=== PATIENT | female | born 1980 | race Hispanic/Latino ===

== ENCOUNTER 2019-05-04 17:49 | Emergency (ER) | payer OTHER ==
[~2019-05-04] VITALS: Ht 165.1 cm; Wt 90.7 kg
--- OUTSIDE RECORDS SUMMARY | 2019-05-04 17:51 | XMS REPORT | Clinical Summary ---
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 Active ferrous sulfate 325 mg Take 1 tablet 90 tablet 3 (65 mg iron) by mouth 3 6 tabletIndications: Iron times daily. deficiency Active nicotine (NICODERM CQ) 21 Apply 1 Patch 28 Patch 0 mg/24 hr to skin as 6 patchIndications: Tobacco directed use daily. Active polyethylene glycol 3350 Take 1 Packet 14 Each 2 (GLYCOLAX) 17 gram oral by mouth 6 powder packetIndications: daily. Constipation, unspecified constipation type Active gabapentin (NEURONTIN) Take 1 30 capsule 1 100 mg capsule by 6 capsuleIndications: mouth 3 times Constipation, unspecified daily. 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 SOB (shortness of breath) 10/27/2013 Constipation 09/30/2013 Anxiety 09/25/2013 Physical deconditioning 09/25/2013 Low back pain 09/24/2013 Headache(784.0) 09/23/2013 Discitis 09/21/2013 Smoking 05/11/2012 Herniated lumbar intervertebral disc 01/02/2012 Chronic lower back pain 10/24/2011 Overview: Concerns about multiple prescribers and multiple pharmacies being used for controlled substances Please review DPS patient prescription report prior to next refill authorization and have patient sign pain contract Fatty liver 04/21/2009 Ingestion of substance Suicidal behavior Fever, unspecified Headache, chronic daily Left arm weakness Left leg weakness Encounters Care Team Description Date Type Specialty Estrada Vera MD Left sided chest pain (Primary Dx); Acute nonintractable headache, unspecified headache type; Anxiety 02/05/2019 Emergency Emergency Medicine 02/05/2019 Travel after 05/03/2018 Immunizations Name Administration Dates Next Due Influenza Vaccine 09/02/2013, 07/27/2012 Ketorolac 30mg/1ml Inj 12/26/2013, 12/12/2013, 09/16/2013, 07/27/2012 (x ) PPV 23 Pneumococcal 12/06/2012 Polysaccaride Tdap Tetanus, diphtheria, 11/01/2012 acellular pertussis Vaccine Toradol 60mg/2ml Syringe 07/05/2013 Family History Medical History Relation Name Comments Asthma Mother Diabetes Mother Heart Mother Relation Name Status Comments Brother Alive Brother Alive Father Alive Mother Sister Alive Sister Social History Date Tobacco Use Types Packs/Day Years Used Former Smoker Cigarettes, 0.5 10 Cigars Smokeless Tobacco: Former Quit: 06/21/2013 User Tobacco Cessation: Counseling Given: No Comments: current smoker Drinks/Week oz/Week Comments Alcohol Use No Sex Assigned at Date Recorded Not on file Industry Job Start Date Occupation Not on file Not on file Not on file Travel End Travel History Travel Start No recent travel history available. Last Filed Vital Signs Reading Time Taken Comments Vital Sign 122/60 02/05/2019 8:16 PM CDT Blood Pressure 63 02/05/2019 8:16 PM CDT Pulse 36.6 C (97.9 F) 02/05/2019 8:16 PM CDT Temperature 16 02/05/2019 8:16 PM CDT Respiratory Rate 100% 02/05/2019 8:16 PM CDT Oxygen Saturation - - Inhaled Oxygen Concentration 87.3 kg (192 lb 6.4 oz) 02/05/2019 3:47 PM CDT Weight - - Height 32.02 04/27/2016 3:08 PM CDT Body Mass Index Plan of Treatment Health Maintenance Due Date Last Done Comments Cervical Cancer Scrn (3 05/11/2015 05/11/2012 Yrs) Procedures Comments Procedure Name Priority Date/Time Associated Diagnosis XRAY CHEST 2 VIEWS STAT 02/05/2019 Left sided chest pain 6:38 PM CDT POCT URINE DIPSTICK - STAT 02/05/2019 6:11 PM CDT BMP POC Routine 02/05/2019 5:05 PM CDT CBC/DIFF STAT 02/05/2019 5:02 PM CDT LIVER PROFILE STAT 02/05/2019 5:02 PM CDT LIPASE STAT 02/05/2019 5:02 PM CDT 12 LEAD EKG Routine 02/05/2019 3:52 PM CDT after 05/03/2018 Results * XRAY CHEST 2 VIEWS (02/05/2019 6:38 PM CDT) Specimen Impressions Performed At IMPRESSION: [facility] No acute cardiopulmonary abnormality. This [facility] radiology report is a preliminary resident dictation until finalized by an attending.Changes to this preliminary report may occur in an additional preliminary or finalized version. Dictated By: Ericka Harvey MD, 02/05/2019 6:39 PM I have reviewed the study and agree with the findings in this report. Signed By: Hever Montoya MD, 02/05/2019 6:42 PM Narrative Performed At EXAM: XR CHEST 2 VIEWS [facility] DATE: 02/05/2019 6:25 PM INDICATION: Left sided chest pain COMPARISON: Chest radiograph 09/02/2014 TECHNIQUE: PA and lateral chest radiographs FINDINGS: Lines, tubes and hardware: Partial visualization of postsurgical hardware projecting over the lower cervical spine. Cholecystectomy clips. Lungs and pleura: No focal consolidation. The costophrenic sulci are sharp, without pleural effusion. No pneumothorax. Heart and mediastinum: The cardiomediastinal silhouette is unremarkable. Bones: No acute bony abnormality. Procedure Note Interface, Rad/Mammog In - 02/05/2019 6:47 PM CDT EXAM: XR CHEST 2 VIEWS DATE: 02/05/2019 6:25 PM INDICATION: Left sided chest pain COMPARISON: Chest radiograph 09/02/2014 TECHNIQUE: PA and lateral chest radiographs FINDINGS: Lines, tubes and hardware: Partial visualization of postsurgical hardware projecting over the lower cervical spine. Cholecystectomy clips. Lungs and pleura: No focal consolidation. The costophrenic sulci are sharp, without pleural effusion. No pneumothorax. Heart and mediastinum: The cardiomediastinal silhouette is unremarkable. Bones: No acute bony abnormality. IMPRESSION IMPRESSION: No acute cardiopulmonary abnormality. This [facility] radiology report is a preliminary resident dictation until finalized by an attending. Changes to this preliminary report may occur in an additional preliminary or finalized version. Dictated By: Ericka Harvey MD, 02/05/2019 6:39 PM I have reviewed the study and agree with the findings in this report. Signed By: Hever Montoya MD, 02/05/2019 6:42 PM Performing Organization Address City/State/Zipcode Phone Number SMS * POCT URINE DIPSTICK - (02/05/2019 6:11 PM CDT) pass Control neg * BMP POC (02/05/2019 5:05 PM CDT) CO2 POC 23Comment: Physician Notified 21 - 32 mmol/L [facility] Chloride POC 106 98 - 107 mmol/L [facility] Potassium POC 4.0 3.50 - 5.10 mmol/L [facility] Sodium POC 139 136 - 145 mmol/L [facility] Glucose POC 98 74 - 106 mg/dL [facility] Urea Nitrogen 8 7 - 18 mg/dL [facility] P[facility] Creatinine POC 0.4 (L) 0.6 - 1.3 mg/dL [facility] Calcium Ionized 1.16 1.15 - 1.29 mmol/L [facility] Hemoglobin POC 13.9 12.0 - 16.0 g/dL [facility] Hematocrit POC 41.0 37.0 - 47.0 % [facility] GFR, Estimated >60 mL/min/1.73 m2 [facility] GFR, Estim, >60 mL/min/1.73 m2 [facility] Afr-Am [facility] Specimen Performing Organization Address [facility]/Zipcode Phone Number [facility] * LIVER PROFILE (02/05/2019 5:02 PM CDT) Protein, Total, 6.6 6.0 - 8.3 g/dL [facility] Serum [facility] Albumin 4.1 3.7 - 5.3 g/dL [facility] Bilirubin, 0.3 0.2 - 1.2 mg/dL [facility] Total [facility] Alkaline 60 34 - 104 U/L [facility] Phosphatase, S [facility] 1 AST (SGOT) 11 (L) 13 - 39 U/L [facility] ALT 11 7 - 52 U/L [facility] 1 D Bilirubin 0.1 0.0 - 0.2 mg/dL [facility] 1 Specimen Blood Performing Organization Address [facility] * LIPASE (02/05/2019 5:02 PM CDT) Lipase 10 (L) 11 - 81 U/L [facility] Specimen Blood Performing Organization Address [facility]/Zipcode Phone Number [facility] * CBC/DIFF (02/05/2019 5:02 PM CDT) WBC 8.2 4.5 - 11.0 K/uL [facility] RBC 4.37 4.20 - 5.40 M/uL [facility] Hemoglobin 12.3 12.0 - 16.0 g/dL [facility] Hematocrit 38.8 37.0 - 47.0 % [facility] MCV 89 82 - 92 fL [facility] MCH 28.1 27.0 - 32.0 pg [facility] MCHC 31.7 (L) 32.0 - 36.0 g/dL [facility] RDW 55.4 (H) 36.4 - 46.3 fL [facility] Platelets 275 150 - 400 K/uL [facility] Mean Platelet 10.8 9.4 - 12.4 fL [facility] Volume [facility] Percent NRBC 0.0 [facility] Absolute NRBC 0.00 [facility] Neutrophils 61.6 34.0 - 70.0 % [facility] Lymphs 27.1 20.0 - 50.0 % [facility] Monocytes 7.1 5.0 - 12.0 % [facility] Eos 3.4 0.7 - 5.0 % [facility] Basos 0.6 0.1 - 1.2 % [facility] Immature 0.2 0.0 - 0.5 [facility] Granulocytes [facility] 2 Neutrophils 5.02 1.56 - 6.13 K/uL [facility] (Absolute) [facility] Lymphs 2.21 1.18 - 3.74 K/uL [facility] (Absolute) [facility] Monocytes(Absol 0.58 (H) 0.24 - 0.36 K/uL [facility] [place] [facility] Eos (Absolute) 0.28 0.04 - 0.36 K/uL [facility] Baso (Absolute) 0.05 0.01 - 0.08 K/uL [facility] Immature Grans 0.02 0.00 - 0.03 K/uL [facility] (Abs) [facility] 2 Specimen Blood Performing Organization Address City/[facility]ode Phone Number [facility] * 12 LEAD EKG (02/05/2019 3:52 PM CDT) 12 LEAD EKG FOR [facility] Test Date:2019-02-05 Pat Name: DELFINA Curtis rtment: [id number] Room: Gender: F Director Cardiology: SHUBHAM :1980-0 02-23 Requested By: ESTRADA VERA Order Number: [id number] Reading MD: Estrada ACUÑA Measurements Intervals [place] Rate: 70 P:5 PA: 141 QRS: 9 QRSD: 90 T:18 QT: 383 QTc:415 Interpretive Statements SINUS RHYTHM Normal ECG for age Electronically Signed On 02-05-2019 16:08:09 CDT by Estrada ACUÑA Specimen Performing Organization Address City/State/Zipcode Phone Number [facility] after 05/03/2018 Insurance Type Payer Benefit Subscriber ID Effective Phone Address Plan / Dates Group [facility] xxxxxxxxx 2016-P [phone] [place] [id number] [place] [address] Advance Directives Date Inactivated Comments Code Status Date Activated 04/29/2016 5:11 PM Full Code 04/27/2016 3:11 AM 04/07/2016 7:03 PM Full Code 04/06/2016 8:45 AM 10/02/2013 10:10 PM Full Code 09/21/2013 9:38 PM 01/07/2012 4:28 PM Full Code 01/02/2012 7:16 AM
--- OUTSIDE RECORDS SUMMARY | 2019-05-04 17:52 | XMS REPORT | Clinical Summary ---
Author Author [employer] [facility] [facility] [employer] [facility] Address Unknown Phone Unavailable Care Team Providers Care Lan Specialist Name Role Phone Rukhsana Tello MD PCP Allergies No Known Allergies Medications End Date Status Medication Sig Dispensed Refills Start Date Active ondansetron ODT (ZOFRAN Take 4 mg by 0 ODT) 4 MG disintegrating mouth every 8 tablet (eight) hours as needed for nausea or vomiting. Active esomeprazole (NexIUM) 20 Take 20 mg by 0 MG capsule mouth daily 6 before breakfast. Active ferrous sulfate 325 (65 Take 325 mg 0 FE) MG tablet by mouth 6 daily with breakfast. Active gabapentin (NEURONTIN) Take 100 mg 0 100 MG capsule by mouth 3 6 (three) times a day. Active nicotine (NICODERM CQ) 21 Place 1 patch 0 mg/24 hr on the skin 6 daily. Active polyethylene glycol Take 17 g by 0 (MIRALAX) 17 gram packet mouth daily 6 as needed for constipation. Active clonAZEPAM (KlonoPIN) 0.5 Take 0.5 mg 0 201 MG tablet by mouth 3 6 (three) times a day as needed for anxiety. Active docusate sodium (COLACE) Take 100 mg 0 100 MG capsule by mouth 2 6 (two) times a day. Active DULoxetine (CYMBALTA) 60 Take 60 mg by 0 02/17/ MG capsule mouth daily. 6 Active levothyroxine (SYNTHROID, Take 50 mcg 0 LEVOTHROID) 50 MCG tablet by mouth 6 every morning. Active QUEtiapine (SEROquel) 50 Take 50 mg by 0 04/18/201 MG tablet mouth 6 nightly. Active zolpidem (AMBIEN) 10 mg Take 10 mg by 0 tablet mouth nightly 6 as needed for sleep. 07/27/2018 cyclobenzaprine Take 1 tablet 90 tablet 0 (FLEXERIL) 10 mg tablet (10 mg total) 8 by mouth 3 (three) times a day for 30 days. 07/07/2018 traMADol (ULTRAM) 50 mg Take 1 tablet 40 tablet 0 tablet (50 mg total) 8 by mouth every 6 (six) hours as needed for moderate pain for up to 10 days. Active Problems Problem Noted Date Acute right-sided low back pain with sciatica 06/25/2018 Resolved Problems Problem Noted Date Resolved Date Urinary tract infection without hematuria 06/25/2018 06/27/2018 Encounters Care Team Description Date Type Specialty Tima Suarez MD Shehata, Mohamed M., MD Acute right-sided low back pain with sciatica, sciatica laterality unspecified (Primary Dx) 06/25/2018 Emergency General Internal Medicine - 06/27/2018 after 05/03/2018 Social History Date Tobacco Use Types Packs/Day Years Used Current Some Day Smoker Cigarettes Smokeless Tobacco: Never Used Tobacco Cessation: Ready to Quit: No; Counseling Given: No Alcohol Use Drinks/Week oz/Week Comments No Sex Assigned at Date Recorded Not on file Industry Job Start Date Occupation Not on file Not on file Not on file Travel End Travel History Travel Start No recent travel history available. Last Filed Vital Signs Time Taken Vital Sign Reading 06/27/2018 11:04 AM CDT Blood Pressure 116/61 06/27/2018 11:04 AM CDT Pulse 68 06/27/2018 7:36 AM CDT Temperature 35.8 C (96.4 F) 06/27/2018 11:04 AM CDT Respiratory Rate 16 06/27/2018 11:04 AM CDT Oxygen Saturation 100% - Inhaled Oxygen - Concentration 06/26/2018 1:40 PM CDT Weight 81.6 kg (180 lb) 06/25/2018 2:26 PM CDT Height 165.1 cm (5' 5") 06/25/2018 2:26 PM CDT Body Mass Index 29.95 Plan of Treatment Health Maintenance Due Date Last Done Comments INFLUENZA VACCINE 06/06/2019 Procedures Comments Procedure Name Priority Date/Time Associated Diagnosis MRI LUMBAR SPINE W WO Routine 06/26/2018 CONTRAST 2:14 PM CDT C-REACTIVE PROTEIN Routine 06/26/2018 3:15 AM CDT SEDIMENTATION RATE Routine 06/26/2018 3:00 AM CDT ZZESTIMATED GFR STAT 06/25/2018 11:03 PM CDT COMPREHENSIVE METABOLIC STAT 06/25/2018 PANEL 11:03 PM CDT C-REACTIVE PROTEIN STAT 06/25/2018 11:03 PM CDT PARTIAL THROMBOPLASTIN STAT 06/25/2018 TIME (PTT) 11:03 PM CDT PROTHROMBIN TIME WITH INR STAT 06/25/2018 11:03 PM CDT HC COMPLETE BLD COUNT STAT 06/25/2018 W/AUTO DIFF 11:[address] ABDOMEN PELVIS WO STAT 06/25/2018 CONTRAST 10:20 PM CDT URINALYSIS, AUTOMATED STAT 06/25/2018 WITH MICROSCOPY 5:00 PM CDT after 05/03/2018 Results * MRI Lumbar Spine W Wo Contrast (06/26/2018 2:14 PM CDT) Specimen Narrative Performed At [facility] EXAMINATION: MRI LUMBAR SPINE W WO CONTRAST CLINICAL HISTORY: acute lower back pain COMPARISON:None TECHNIQUE: Multiplanar multisequence pre and post contrast enhanced examination was performed of the Lumbar spine. FINDINGS: Vertebral body heights are maintained without acute fracture. No focal significant marrow signal abnormality is appreciated. No significant enhancing abnormality is noted on the postcontrast images. Soft tissues shows no mass, adenopathy or aneurysm. The partially visualized spinal cord and the conus are unremarkable. Lumbar spine alignment is grossly preserved with normal lordosis without significant subluxation. Axial images through the disc spaces demonstrate the following: L1-L2: No significant posterior disc disease, spinal canal or neural foraminal stenosis. L2-L3: No significant posterior disc disease, spinal canal or neural foraminal stenosis. L3-L4: There is disc desiccation, loss of disc height with disc bulge and a right paracentral protrusion. There is mild to moderate right lateral recess narrowing. The thecal sac is patent with overlying laminectomy changes. Disc osteophyte complex and facet hypertrophy is present with minimal narrowing of the inferior foramina. Findings are grossly stable. L4-L5: Interval laminectomy changes are noted with decompression of the thecal sac with no significant canal or lateral recess narrowing on today's exam as was seen in 2012. There is mild left foraminal narrowing. The right foramen is patent. L5-S1: There is facet hypertrophy and laminotomy changes suggested at this level with no significant canal or lateral recess narrowing. There is mild narrowing of the left foramen from this osteophyte changes. The right foramen is widely patent. Findings are stable. No significant posterior disc disease, spinal canal or neural foraminal stenosis at other visualized levels. There is no abnormal enhancing lesion on the postcontrast images. IMPRESSION: Laminectomy changes are noted at L3-4 and L4-5 with decompression of the canal. There is no progressive or significant stenosis identified. No acute osseous abnormality appreciated. [facility]-[id number] Procedure Note Hm Interface, Radiology Results - 06/26/2018 5:01 PM CDT EXAMINATION: MRI LUMBAR SPINE W WO CONTRAST CLINICAL HISTORY: acute lower back pain COMPARISON: None TECHNIQUE: Multiplanar multisequence pre and post contrast enhanced examination was performed of the Lumbar spine. FINDINGS: Vertebral body heights are maintained without acute fracture. No focal significant marrow signal abnormality is appreciated. No significant enhancing abnormality is noted on the postcontrast images. Soft tissues shows no mass, adenopathy or aneurysm. The partially visualized spinal cord and the conus are unremarkable. Lumbar spine alignment is grossly preserved with normal lordosis without significant subluxation. Axial images through the disc spaces demonstrate the following: L1-L2: No significant posterior disc disease, spinal canal or neural foraminal stenosis. L2-L3: No significant posterior disc disease, spinal canal or neural foraminal stenosis. L3-L4: There is disc desiccation, loss of disc height with disc bulge and a right paracentral protrusion. There is mild to moderate right lateral recess narrowing. The thecal sac is patent with overlying laminectomy changes. Disc osteophyte complex and facet hypertrophy is present with minimal narrowing of the inferior foramina. Findings are grossly stable. L4-L5: Interval laminectomy changes are noted with decompression of the thecal sac with no significant canal or lateral recess narrowing on today's exam as was seen in 2013. There is mild left foraminal narrowing. The right foramen is patent. L5-S1: There is facet hypertrophy and laminotomy changes suggested at this level with no significant canal or lateral recess narrowing. There is mild narrowing of the left foramen from this osteophyte changes. The right foramen is widely patent. Findings are stable. No significant posterior disc disease, spinal canal or neural foraminal stenosis at other visualized levels. There is no abnormal enhancing lesion on the postcontrast images. IMPRESSION: Laminectomy changes are noted at L3-4 and L4-5 with decompression of the canal. There is no progressive or significant stenosis identified. No acute osseous abnormality appreciated. [facility]-[id number] Performing Organization Address [facility] [place] [address] * C-reactive protein (06/26/2018 3:15 AM CDT) Only the most recent of 2 results within the time period is included. Pathologist [facility] CRP 0.36 0.00 - 0.50 mg/dL [facility] DEPARTMENT OF PATHOLOGY AND GENOMIC MEDICINE Specimen Plasma specimen Performing Organization Address [facility] [place] [address] PATHOLOGY AND GENOMIC MEDICINE * Sedimentation rate (06/26/2018 3:00 AM CDT) Pathologist [facility] Sedimentation 8 0 - 20 mm/hr [facility] DEPARTMENT rate OF PATHOLOGY AND GENOMIC MEDICINE Specimen Blood Performing Organization Address [facility] [place] [address] PATHOLOGY AND GENOMIC MEDICINE * Estimated GFR (06/25/2018 11:03 PM CDT) Pathologist [facility] GFR Non Af Amer >90 mL/min/1.73 m2 [facility] DEPARTMENT OF PATHOLOGY AND GENOMIC MEDICINE GFR Af Amer >90 mL/min/1.73 m2 [facility] DEPARTMENT Comment: OF PATHOLOGY Chronic kidney disease: <60 AND GENOMIC mL/min/1.73m2 MEDICINE Kidney failure: <15 mL/min/1.73m2 The estimated GFR is calculated from the IDMS-traceable Modification of Diet in Renal Disease Equation. The accuracy of the calculation is poor when the creatinine is normal. Calculated values >90 mL/min/1.73m2 are not reported. This equation has not been validated in children (<18 years), women, the elderly (>70 years), or ethnic groups other than Caucasians and Americans. Specimen Plasma specimen Performing Organization Address [facility] Phone Number [facility] [place] [address] PATHOLOGY AND [facility] * Partial thromboplastin time, activated (06/25/2018 11:03 PM CDT) PTT 27.3 23.0 - 36.0 sec [facility] DEPARTMENT Comment: OF PATHOLOGY PTT therapeutic range for AND GENOMIC unfractionated heparin is MEDICINE 61.0-112.0 seconds which corresponds to Anti-Xa 0.3-0.7 U/ml. Specimen Blood Performing Organization Address [facility] [place] [address] PATHOLOGY [facility] * Prothrombin time with INR (06/25/2018 11:03 PM CDT) Prothrombin 12.9 12.0 - 15.0 sec [facility] DEPARTMENT time OF PATHOLOGY AND GENOMIC MEDICINE INR 1.0 [facility] DEPARTMENT Comment: OF PATHOLOGY The International Normalized AND GENOMIC Ratio (INR) is a therapeutic MEDICINE monitoring tool for patients who are stable on oral anticoagulant therapy. An INR of 2.0-3.0 is suggested for deep vein thrombosis/pulmonary embolism. Specimen Blood Performing Organization Address [facility] Phone Number [facility] [place] [address] PATHOLOGY AND [facility] * CBC with platelet and differential (06/25/2018 11:03 PM CDT) WBC 9.18 4.50 - 11.00 k/uL [facility] DEPARTMENT OF PATHOLOGY AND GENOMIC MEDICINE RBC 3.83 (L) 4.20 - 5.50 m/uL [facility] DEPARTMENT OF PATHOLOGY AND GENOMIC MEDICINE HGB 11.7 (L) 12.0 - 16.0 g/dL [facility] DEPARTMENT OF PATHOLOGY AND GENOMIC MEDICINE HCT 35.5 (L) 37.0 - 47.0 % [facility] DEPARTMENT OF PATHOLOGY AND GENOMIC MEDICINE MCV 92.7 82.0 - 100.0 fL [facility] DEPARTMENT OF PATHOLOGY AND GENOMIC MEDICINE MCH 30.5 27.0 - 34.0 pg [facility] DEPARTMENT OF PATHOLOGY AND GENOMIC MEDICINE MCHC 33.0 31.0 - 37.0 g/dL [facility] DEPARTMENT OF PATHOLOGY AND GENOMIC MEDICINE RDW - SD 49.3 37.0 - 55.0 fL [facility] DEPARTMENT OF PATHOLOGY AND GENOMIC MEDICINE MPV 11.2 8.8 - 13.2 fL [facility] DEPARTMENT OF PATHOLOGY AND GENOMIC MEDICINE Platelet count 233 150 - 400 k/uL [facility] DEPARTMENT OF PATHOLOGY AND GENOMIC MEDICINE Nucleated RBC 0.00 /100 WBC [facility] DEPARTMENT OF PATHOLOGY AND GENOMIC MEDICINE Neutrophils 58.9 39.0 - 69.0 % [facility] DEPARTMENT OF PATHOLOGY AND GENOMIC MEDICINE Lymphocytes 30.5 25.0 - 45.0 % [facility] DEPARTMENT OF PATHOLOGY AND GENOMIC MEDICINE Monocytes 6.4 0.0 - 10.0 % [facility] DEPARTMENT OF PATHOLOGY AND GENOMIC MEDICINE Eosinophils 3.7 0.0 - 5.0 % [facility] DEPARTMENT OF PATHOLOGY AND GENOMIC MEDICINE Basophils 0.3 0.0 - 1.0 % [facility] DEPARTMENT OF PATHOLOGY AND GENOMIC MEDICINE Immature 0.2Comment: "Immature 0.0 - 1.0 % [facility] DEPARTMENT granulocytes granulocytes" (promyelocytes, OF PATHOLOGY myelocytes, metamyelocytes) AND GENOMIC MEDICINE Specimen Blood Performing Organization Address City/State/Zipcode Phone Number [address] [address] PATHOLOGY AND GENOMIC MEDICINE * Comprehensive metabolic panel (06/25/2018 11:03 PM CDT) Sodium 141 135 - 148 mEq/L [facility] DEPARTMENT OF PATHOLOGY AND GENOMIC MEDICINE Potassium 3.7 3.5 - 5.0 mEq/L [facility] DEPARTMENT OF PATHOLOGY AND GENOMIC MEDICINE Chloride 106 98 - 112 mEq/L [facility] DEPARTMENT OF PATHOLOGY AND GENOMIC MEDICINE CO2 21 (L) 24 - 31 mEq/L [facility] DEPARTMENT OF PATHOLOGY AND GENOMIC MEDICINE Anion gap 14@ANIO 7 - 15 mEq/L [facility] DEPARTMENT OF PATHOLOGY AND GENOMIC MEDICINE BUN 5 (L) 6 - 20 mg/dL [facility] DEPARTMENT OF PATHOLOGY AND GENOMIC MEDICINE Creatinine 0.6 0.5 - 0.9 mg/dL [facility] DEPARTMENT OF PATHOLOGY AND GENOMIC MEDICINE Glucose 113 (H) 65 - 99 mg/dL [facility] DEPARTMENT OF PATHOLOGY AND GENOMIC MEDICINE Calcium 8.6 8.3 - 10.2 mg/dL [facility] DEPARTMENT OF PATHOLOGY AND GENOMIC MEDICINE Protein 6.3 6.3 - 8.3 g/dL [facility] DEPARTMENT Comment: OF PATHOLOGY [place] AND GENOMIC 4.6-7.0 g/dL MEDICINE 1 week 4.4-7.6 g/dL 7 months-1year 5.1-7.3 g/dL 1-2 years5.6-7 .5 g/dL >3 years6.0-8 .0 g/dL 18-150 6.3-8.3 g/dL Albumin 3.4 (L) 3.5 - 5.0 g/dL [facility] DEPARTMENT OF PATHOLOGY AND GENOMIC MEDICINE A/G ratio 1.2 0.7 - 3.8 [facility] DEPARTMENT OF PATHOLOGY AND GENOMIC MEDICINE Alkaline 64 35 - 104 U/L [facility] DEPARTMENT phosphatase OF PATHOLOGY AND GENOMIC MEDICINE AST 15 10 - 35 U/L [facility] DEPARTMENT OF PATHOLOGY AND GENOMIC MEDICINE ALT 11 5 - 50 U/L [facility] DEPARTMENT OF PATHOLOGY AND GENOMIC MEDICINE Total bilirubin <0.2 0.0 - 1.2 mg/dL [facility] DEPARTMENT OF PATHOLOGY AND GENOMIC MEDICINE Specimen Plasma specimen Performing Organization Address City/State/Zipcode Phone Number [facility] DEPARTMENT OF [address] [place] [address] PATHOLOGY AND GENOMIC MEDICINE * CT Abdomen Pelvis Wo Contrast (06/25/2018 10:20 PM CDT) Specimen Narrative Performed At Examination:CT ABDOMEN PELVIS WO CONTRAST [facility] Clinical History: Abd painunspecified Comparison: None. Findings: CT scans are performed using radiation dose reduction techniques.Technical factors are evaluated and adjusted to ensure appropriate moderation of exposure.Automated dose management technology is applied to adjust radiation exposure while achieving a diagnostic quality image. CT scan of abdomen and pelvis was performed without intravenous contrast. The liver, spleen, pancreas, and adrenal glands are unremarkable. The patient is status post cholecystectomy. The left kidney is within normal limits without hydronephrosis or urinary calculus. There is very mild right hydroureter of unknown etiology. No urinary calculus is seen. The appendix is not visualized. No bowel thickening or fat stranding is seen. No bowel dilatation is seen. No free air or fluid is seen. Urinary bladder is unremarkable. The visualized lung bases are clear. IMPRESSION: 1. Very mild right hydroureter of unknown etiology. This may represent a passed calculus. Clinical correlation is recommended. 2. Otherwise no acute abnormality identified in abdomen or pelvis. [facility]-[id number] Procedure Note Hm Interface, Radiology Results Incoming - 06/25/2018 10:30 PM CDT Examination: CT ABDOMEN PELVIS WO CONTRAST Clinical History: Abd pain unspecified Comparison: None. Findings: CT scans are performed using radiation dose reduction techniques. Technical factors are evaluated and adjusted to ensure appropriate moderation of exposure. Automated dose management technology is applied to adjust radiation exposure while achieving a diagnostic quality image. CT scan of abdomen and pelvis was performed without intravenous contrast. The liver, spleen, pancreas, and adrenal glands are unremarkable. The patient is status post cholecystectomy. The left kidney is within normal limits without hydronephrosis or urinary calculus. There is very mild right hydroureter of unknown etiology. No urinary calculus is seen. The appendix is not visualized. No bowel thickening or fat stranding is seen. No bowel dilatation is seen. No free air or fluid is seen. Urinary bladder is unremarkable. The visualized lung bases are clear. IMPRESSION: 1. Very mild right hydroureter of unknown etiology. This may represent a passed calculus. Clinical correlation is recommended. 2. Otherwise no acute abnormality identified in abdomen or pelvis. [facility]-[id number] Performing Organization Address City/State/Zipcode Phone Number [facility] [address] [place] [address] * Urinalysis, automated with microscopy (06/25/2018 5:00 PM CDT) Color, UA Straw [facility] DEPARTMENT OF PATHOLOGY AND GENOMIC MEDICINE Appearance, UA Clear [facility] DEPARTMENT OF PATHOLOGY AND GENOMIC MEDICINE Specific 1.011 1.001 - 1.035 [facility] DEPARTMENT gravity, OF PATHOLOGY AND GENOMIC MEDICINE pH, UA 6.0 5.0 - 8.5 [facility] DEPARTMENT OF PATHOLOGY AND GENOMIC MEDICINE Protein, UA Negative Negative [facility] DEPARTMENT OF PATHOLOGY AND GENOMIC MEDICINE Glucose, UA Negative Negative [facility] DEPARTMENT OF PATHOLOGY AND GENOMIC MEDICINE Ketones, UA Negative Negative [facility] DEPARTMENT OF PATHOLOGY AND GENOMIC MEDICINE Bilirubin, UA Negative Negative [facility] DEPARTMENT OF PATHOLOGY AND GENOMIC MEDICINE Blood, UA Negative Negative [facility] DEPARTMENT OF PATHOLOGY AND GENOMIC MEDICINE Nitrite, UA Negative Negative [facility] DEPARTMENT OF PATHOLOGY AND GENOMIC MEDICINE Urobilinogen, <2.0 <2.0 [facility] DEPARTMENT UA OF PATHOLOGY AND GENOMIC MEDICINE Leukocyte Negative Negative [facility] DEPARTMENT esterase, UA OF PATHOLOGY AND GENOMIC MEDICINE Epithelial 4 /HPF [facility] DEPARTMENT cells, UA OF PATHOLOGY AND GENOMIC MEDICINE WBC, UA <1 0 - 4 /HPF [facility] DEPARTMENT OF PATHOLOGY AND GENOMIC MEDICINE RBC, UA 2 0 - 5 /HPF [facility] DEPARTMENT OF PATHOLOGY AND GENOMIC MEDICINE Bacteria, UA Few None seen [facility] DEPARTMENT OF PATHOLOGY AND GENOMIC MEDICINE Yeast, UA None seen [facility] DEPARTMENT OF PATHOLOGY AND GENOMIC MEDICINE Yeast with None seen [facility] DEPARTMENT pseudohyphae, OF PATHOLOGY UA AND GENOMIC MEDICINE Specimen Urine Performing Organization Address City/State/Zipcode Phone Number [facility] DEPARTMENT OF [address] [place] [address] PATHOLOGY AND GENOMIC MEDICINE after 05/03/2018 Insurance Type Payer Benefit Subscriber ID Effective Phone Address Plan / Dates Group [facility] MEDICAID [facility] xxxxxxxxx [id number] [employer] resent [facility] Advance Directives Patient has advance care planning documents on file. For more information, mahsa jacobson contact: Danilo Andersen [address] [place] [address]
--- OUTSIDE RECORDS SUMMARY | 2019-05-04 17:52 | XMS REPORT ---
[facility] Address Unknown Phone Unavailable Care Team Providers Care Threat Analyst Name Role Phone Felicita GRAY PP Unavailable SHER, ELIAS Unavailable Unavailable Payers Payer Name Policy Type Policy Number Effective Date Expiration Date Problems This patient has no known problems. Allergies, Adverse Reactions, Alerts Allergy Name Allergy Type Status Severity Reaction(s) Onset Date Inactive Date Treating Clinician Comments No Known Allergies DA Active U 2018-11-20 00:00:00 No Known Allergies DA Active U 2018-08-29 00:00:00 No Known Allergies DA Active U 2017-05-13 00:00:00 No Known Allergies DA Active U 2016-04-22 00:00:00 Medications This patient has no known medications. Encounters Start Date/Time End Date/Time Encounter Type Admission Type Attending Clinicians Care Facility Care Department Encounter ID 2019-02-05 18:25:53 2019-02-05 18:25:53 Emergency [facility] [id number] 2019-02-05 17:36:49 2019-02-05 17:36:49 Emergency [facility] [id number] Results Test Description Test Time Test Comments Text Results Atomic Results Result Comments - XR L-SPINE 2/3 VIEWS 2018-12-23 21:57:00 FAX: Leigh Martinez MD [phone] [place]: St: [facility] FAX: Kaveh Ferguson [facility] [phone] Name: PAYAM PHILLIPS [facility] : 1980 Age/S: 38/F [address] [facility] Unit #: [id number] Loc: [place] [address] Phys: Kaveh Ricketts Acct: [id number] Dis Date: Status: REG ER PHONE #: [phone] Exam Date: 12/23/20182132 FAX #: [phone] Reason: PAIN S/P FALL EXAMS: CPT CODE: [id number] XR L-SPINE 2/3 VIEWS 74598 REASON FOR EXAM: PAIN S/P FALL EXAM ORDER DATE: 12/23/2018 9:02 PM Ordering Ivania: Kaveh Ricketts PROCEDURE: - XR L-SPINE 2/3 VIEWS FINDINGS: 3 views of the lumbar spine were obtained. There is normal alignment of the lumbar spine. The vertebral bodies are unremarkable in size and shape aside from status post laminectomy of L3-4. The disc spaces are maintained. No evidence of fracture. IMPRESSION: No acute osseous abnormality at 6232 Reported and signed by: Seb Cotton M.D. CC: Leigh Fuller MD; Kaveh Ricketts Technologist: Karla Alonso Trnscrd Date/Time/By: 12/23/2018 (2156) : By: AnthonyL Orig Print D/T: S: 12/23/2018 (0409) PAGE 1 Signed Report - XR C-SPINE 2-3 VIEWS 2018-12-23 21:56:00 FAX: Leigh Martinez MD [phone] [place]: St: REG FAX: Kaveh Ferguson [facility] [phone] Name: PAYAM PHILLIPS [facility] : 1980 Age/S: 38/F [address] [facility] Unit #: [id number] Loc: [place] [address] Phys: Kaveh Ricketts Acct: [id number] Dis Date: Status: REG ER PHONE #: [phone] Exam Date: 12/23/20182132 FAX #: [phone] Reason: PAIN S/P FALL EXAMS: CPT CODE: [id number] XR C-SPINE 2-3 VIEWS 22544 REASON FOR EXAM: PAIN S/P FALL EXAM ORDER DATE: 12/23/2018 9:02 PM Ordering MKalani: Kaveh Ricketts PROCEDURE: - XR C-SPINE 2-3 VIEWS FINDINGS: 3 views of the cervical spine were obtained including odontoid and oblique views. The osseous structures are unremarkable in size and shape with anterior fusion of C5-6 and artificial disc spacer. The disc spaces are maintained. No evidence of fracture. IMPRESSION: Unremarkable cervical spine at 215 Reported and signed by: Seb Cotton M.D. CC: Leigh Corrigan MD; Kaveh Ricketts Technologist: Karla Alonso Date/Time/By: 12/23/2018 (2155) : By: AnthonyL Orig Print D/T: S: 12/23/2018 (660) PAGE 1 Signed Report DUODENUM,ANTONIO 2018-09-14 13:29:00 RUN DATE: 09/14/18 [place] - Lab PAGE 1 RUN TIME: 1329 Specimen Inquiry RUN USER: INTERFACE PATIENT: PAYAM PHILLIPS LOC: [facility] U #: [id number] AGE/SX: 38/F ROOM: RE09/13/18[facility] DR: Leigh Fuller MD : 80 BED: DIS: STATUS: [facility] TLOC: SPEC #: [id number] RECD: 09/13/18 STATUS: CIELO SMILEY #: [id number] JOSE: 09/13/[address] [facility] [address]: Leigh Fuller MD ENTERED: 09/13/18 SP TYPE: BX DUODEN TATIANNA DR: ORDERED: GROSS PROCEDURES: GROSS (09/14/18120) TISSUES: 1. DUODENUM, NOS - BX 2. ANTRUM - BX 3. BODY BIOPSY OF STOMACH 4. ESOPHAGUS, NOS - BX CLINICAL HISTORY COLLECTION DATE: 09/13/18 ABDOMINAL PAIN POST-OP DIAGNOSIS: MILD GASTRITIS, SMALL HIATAL HERNIA FINAL DIAGNOSIS Small intestine, duodenum, biopsy: SMALL INTESTINAL MUCOSA, NO PATHOLOGIC ALTERATION Stomach, antrum, biopsy: MILD PATCHY CHRONIC GASTRITIS CONTROLLED GIEMSA STAIN NEGATIVE FOR HELICOBACTER ORGANISMS NEGATIVE FOR DYSPLASIA AND MALIGNANCY Stomach, body, biopsy: MILD PATCHY CHRONIC GASTRITIS NO ACUTE INFLAMMATORY INFILTRATES IDENTIFIED NEGATIVE FOR DYSPLASIA AND MALIGNANCY Esophagus, biopsy: SQUAMOUS EPITHELIUM WITH MILD INCREASE IN INTRAEPITHELIAL LYMPHOCYTES NO ACUTE INFLAMMATORY INFILTRATES OR INTRAEPITHELIAL EOSINOPHILS IDENTIFIED NEGATIVE FOR MALIGNANCY Moustapha Esparza [id number], [id number] CONTINUED ON NEXT PAGE RUN DATE: 09/14/18 [facility] PAGE 2 RUN TIME: 1329 Specimen Inquiry RUN USER: INTERFACE SPEC #: [id number] PATIENT: PAYAM PHILLIPS #[id number] (Continued) MACROSCOPIC Specimen (1) is received in formalin, labeled with the patient's name, identified as "duodenum bx", and consists of multiple fragments of grady-pink biopsy tissue measuring 1.0 cm in aggregate, entirely submitted as (1). Specimen (2) is received in formalin, labeled with the patient's name, identified as "antrum bx", and consists of multiple fragments of grady-pink biopsy tissue measuring 0.6 cm in aggregate, entirely submittedas (2) for H E and giemsa stains. Specimen (3) is received in formalin, labeled with the patient's name, identified as "body of stomach", and consists of two fragments of grady-pink biopsy tissue measuring 0.25 cm each, entirely submitted as (3) for H E and giemsa stains. Specimen (4) is received in formalin, labeled with the patient's name, identified as "esophagus bx", and consists of two fragments of grady-pink biopsy tissue measuring 0.35 cm each, entirely submitted as (4). GROSS PERFORMED AT [facility] [address] [place] [phone] (B) MICROSCOPIC MICROSCOPIC PERFORMED AT [facility] All of the stains, including any controls performed, stain appropriately. [facility] [address] [place] [phone] PERFORMING SITE Diagnosis performed at: [facility] [address] [place] [id number] - Signed SIGNATURE ON FILE Julisa Nina 09/14/18 1329 END OF REPORT Strep A Screen, Rapid 2017-05-26 09:52:00 Specimen: ThroatCollected: 05/23/2017 22:27 Status: Final Last Updated: 05/26/2017 09:52 Strep A Screen Rapid (Final) (Final) Negative Blood [place](24 hrs) (Final) (Final) 05/25/17 No Group A Strep isolated Blood [place](48 hrs) (Final) (Final) 05/26/17 No Group A Strep isolated Basic Metabolic Panel 2017-05-24 01:58:00 Sodium (test code=NA) 135 mmol/L 135-145 Potassium (test code=K) 5.4 mmol/L 3.5-5.1 Hemolyzed Chloride (test code=CL) 103 mmol/L 98-105 Carbon Dioxide (test code=CO2) 20 mmol/L 22-29 Glucose (test code=GLU) 100 mg/dL 70-115 Blood Urea Nitrogen (test code=BUN) 7 mg/dL 6-20 Creatinine (test code=CREAT) 0.5 mg/dL 0.5-0.9 Calcium (test code=CA) 9.2 mg/dL 8.3-10.5 BUN/Creatinine Ratio (test code=BCRATIO) 14.0 Anion Gap (test code=AGAP) 12 mmol/L 7-16 Estimated GFR (test code=GFR) >60 mL/min/1.73m2 eGFR (estimated Glomerular Filtration Rate) is an estimated value,calculated from the patient's serum creatinine using the MDRD equation.It is NOT the patient's actual GFR. The eGFR provides a more clinicallyuseful measure of kidney disease than serum creatinine alone.This calculation takes sex and race into account, if the informationis provided. If the race is not provided, and the patient isAfrican-[place], multiply by 1.212. If sex is not provided, and thepatient is female, multiply by 0.742. Results for patients <18 years ofage have not been validated by the MDRD study and should be interpretedwith caution.eGFR Result Interpretation:eGFR > or=60 is in the Normal RangeeGFR < 60 may mean kidney diseaseeGFR < 15 may mean kidney failureRanges recommended by the National Kidney Foundat ion,http://nkdep.nih.gov CBC with [id number] 01:20:00* Test Item Value Reference Range Comments WBC (test code=WBC) 7.4 K/cumm 4.4-10.5 RBC (test code=RBC) 3.92 M/cumm 3.75-5.20 Hemoglobin (test code=HGB) 11.2 gm/dL 12.2-14.8 Hematocrit (test code=HCT) 34.9 % 36.5-44.4 MCV (test code=MCV) 89.2 fL 80-100 MCH (test code=MCH) 28.7 pg 27.0-32.5 MCHC (test code=MCHC) 32.2 g/dL 32.0-37.5 RDW (test code=RDW) 15.9 % 11.5-14.5 Platelet Count (test code=PLTCT) 148 K/cumm 140-440 MPV (test code=MPV) 9.9 fL Diff Method (test code=DIFFM) Auto Neutrophil (test code=NEUT) 53.0 % 36-70 Lymphocyte (test code=LYMPH) 34.8 % 12-44 Monocyte (test code=MONO) 8.2 % 0-11 Eosinophil (test code=EOS) 3.5 % 0-7 Basophil (test code=BASO) 0.5 % 0-2 Neutro Abs (test code=ANEUT) 3.9 K/cumm 1.6-7.4 Lymph Abs (test code=ALYMPH) 2.6 K/cumm 0.5-4.6 Fergus Abs (test code=AMONO) 0.6 K/cumm 0.0-1.2 Eos Abs (test code=AEOS) 0.26 K/cumm 0.00-0.74 Baso Abs (test code=ABASO) 0.0 K/cumm 0.00-0.21
== END 2019-05-04 18:40 | disposition left against medical advice (07) ==
LOC: ER 17:49
DX: Z53.21 Procedure and treatment not carried out due to patient leaving prior to being seen by health care provider (principal); G44.219 Episodic tension-type headache, not intractable